=== PATIENT | female | born 1945 | race Caucasian/White ===

== ENCOUNTER → 2018-08-02 | Outpatient (CLI) | payer OTHER ==
[~2018-08-02] VITALS: Ht 152.4 cm; Wt 78.9 kg
[~2018-08-02] MED LIST: ACETAMINOPHEN650 M5 PO; AMLODIPINE BESY10 MG PO; CELEXA 20 MG TA20 M1 PO; CRESTOR5 MG PO; GLUCOPHAGE XR750 MG PO; LOSARTAN POTAS100 MG PO; MOBIC15 MG PO; NORVASC 5 MG TAB5 MG PO; PROTONIX40 M1 PO; WELLBUTRIN SR150 MG PO; ZANAFLEX2 MG PO; ZOCOR 20 MG TAB20 M1 PO
--- NOTE | 2018-08-02 16:39 | P ---
[facility] [place] [address] PROCEDURE REPORT Name: PARISA AVILEZ Room #: REG [facility] Anastasia#: [id number] Admission: 08/02/18 ������������������ Attend Phys: Kit Laura MD Discharge: ������������������ Date of : 43 Report #: [id number] THIS REPORT FOR: //name// CC: Kit Louise OUTPATIENT UPPER ENDOSCOPY NOTE BRIEF HISTORY: The patient is a 72-year-old woman who has long history of reflux disease. She has recurrent dysphagia for solids. PREOPERATIVE DIAGNOSES: Reflux disease and dysphagia. POSTOPERATIVE DIAGNOSES: 1. Mild erythematous gastritis. 2. Dysphagia for solids. MEDICATIONS: Deep sedation with propofol per Anesthesia. SPECIMEN: Biopsies of gastritis. ESTIMATED BLOOD LOSS: 3 mL. PROCEDURE: EGD with biopsy and Knowles dilation. FINDINGS: Prior to propofol sedation, the procedure of upper endoscopy and dilation was discussed with the patient as well as potential risks and its complications. She indicates she understands and desires to proceed. DESCRIPTION OF PROCEDURE: With the patient in the left lateral decubitus position, the Olympus video endoscope was inserted in the cervical esophagus under direct vision without difficulty. Examination of this organ through its entire length revealed normal esophageal mucosa down to the squamocolumnar junction. The squamocolumnar junction was inspected and noted to be unremarkable. No evidence of esophagitis, strictures or masses. A hiatus hernia was not seen. Scope was advanced in the stomach, which was examined on end views as well as retroflexed views. There was patchy erythema in the antrum. No ulcers were seen. The mucosa was intact. Upon retroflexion, no mass lesions were seen. The cardia was unremarkable. Biopsies were obtained to evaluate for H. pylori. The pylorus, duodenal bulb and postbulbar sweep down to the third portion were noted to be unremarkable. At that point, the scope was slowly withdrawn and careful circumferential views confirmed the above findings. The patient tolerated the procedure well. Following the procedure, she was dilated with passage of 50-[place] Knowles dilator without resistance. [facility] [address] [place] [address] PROCEDURE REPORT Name: PARISA AVILEZ Room #: REG [facility] [place]#: [id number] Admission: 08/02/18 ������������������ Attend Phys: Kit Laura MD Discharge: ������������������ Date of : 43 Report #: [id number] CONDITION OF THE PATIENT UPON DISCHARGE: Following procedure, the patient drowsy and prepared for colonoscopy. INSTRUCTIONS TO THE PATIENT AND FAMILY AT THE TIME OF DISCHARGE: Esophagus is normal. I do not see a ring, but she has recurrent symptoms. She has been dilated with success in the past. She may return for dilation on an as-needed basis due to recurrence symptoms of dysphagia. She should use her PPI at the lowest dose to control symptoms. We will follow up on biopsies. Proceed with colonoscopy at this time. ��������������������������������������������� <ELECTRONICALLY SIGNED> ���������������������������������������� By: Kit Laura MD ��������������������������������������������� 08/02/18 [id number] [id number] Kit Laura MD /nt
--- NOTE | 2018-08-02 16:39 | P ---
[facility] [place] [address] PROCEDURE REPORT Name: PARISA AVILEZ Room #: REG [facility].#: [id number] Admission: 08/02/18 ������������������ Attend Phys: Kit Laura MD Discharge: ������������������ Date of : 43 Report #: [id number] THIS REPORT FOR: //name// CC: Kit Louise MD DATE OF SERVICE: 08/02/2018 PROCEDURE: Outpatient colonoscopy. BRIEF HISTORY: The patient is a 72-year-old woman with a history of colon adenomas as well as worsening constipation and intermittent rectal bleeding. POSTOPERATIVE DIAGNOSIS: Diminutive polyp, 70 cm. MEDICATIONS: Deep sedation with propofol per anesthesia. SPECIMEN: Polyp from 70 cm. ESTIMATED BLOOD LOSS: 3 mL. PROCEDURE: Colonoscopy to cecum and terminal ileum with biopsy. FINDINGS: Prior to propofol sedation, procedure of colonoscopy discussed with the patient as well as potential risks and its complications. She indicates she understands and desires to proceed. DESCRIPTION OF PROCEDURE: With the patient in left lateral decubitus position, digital examination was completed, which revealed no abnormalities. Subsequently, the Olympus video colonoscope was introduced in the rectum, advanced under direct vision to the cecum. Done with minimal difficulty. Cecum was identified by the ileocecal valve and the appendiceal orifice. I was able to visualize the distal segment of terminal ileum, which was inspected and noted to be unremarkable. At that point, scope was slowly withdrawn and careful circumferential views obtained including retroflexing the scope in the ascending colon. Upon slow withdrawal of the scope, the prep was good. The mucosa was within normal limits, normal vascular pattern, normal light reflex. As we withdrew the scope, no abnormalities were noted until the descending colon was reached and at about 70 cm, a diminutive polyp was seen and removed with biopsy forceps. Scope was further withdrawn and no additional mucosal abnormalities were seen. No bleeding lesions were seen. Vascular ectasias were not seen. The scope was withdrawn in the rectum. Upon retroflexion, no abnormalities were seen. Scope was withdrawn. The patient tolerated the procedure well. CONDITION OF THE PATIENT UPON DISCHARGE: Following procedure, the patient [facility] [address] [place] [address] PROCEDURE REPORT Name: PARISA AVILEZ [id number] Admission: 08/02/18 ������������������ Attend Phys: Kit Laura MD Discharge: ������������������ Date of : 43 Report #: [id number] drowsy and will be discharged home when fully ambulatory. INSTRUCTIONS TO THE PATIENT AND FAMILY AT THE TIME OF DISCHARGE: We will follow up on the path of the polyp. If this is an adenoma, she should return in 5 years. If it is not, then 10 years would be indicated. As far as her bleeding, I do not find any bleeding lesions. I suspect the bleeding is related to constipation or hard stools. She reports she had a reaction after one Linzess pill. We will try Amitiza 24 mcg twice daily. We will have her return to follow up in the office if symptoms do not improve. Last colonoscopy was more than 3 years ago. Withdrawal time from the cecum was 11 minutes 11 seconds. ��������������������������������������������� <ELECTRONICALLY SIGNED> ���������������������������������������� By: Kit Luara MD ��������������������������������������������� 08/02/18 1639 [id number] Kit Laura MD /nt
== END | disposition home or self-care (01) ==
LOC: GI 09:02
DX: K63.5 Polyp of colon (principal); K29.70 Gastritis, unspecified, without bleeding; R13.19 Other dysphagia; K21.9 Gastro-esophageal reflux disease without esophagitis; I10 Essential (primary) hypertension; E11.9 Type 2 diabetes mellitus without complications; E78.5 Hyperlipidemia, unspecified; Z96.641 Presence of right artificial hip joint; F32.9 Major depressive disorder, single episode, unspecified; Z98.890 Other specified postprocedural states; Z79.899 Other long term (current) drug therapy; Z86.010 Personal history of colon polyps
CPT/HCPCS: 62110; 62900